=== PATIENT | female | born 1970 | race Caucasian/White ===

== ENCOUNTER 2020-04-29 18:19 | Emergency (ER) | payer MEDICAID, SELFPAY ==
[~2020-04-29] VITALS: Ht 167.6 cm; Wt 93.9 kg
[2020-04-29 18:21] VITALS: Ht 167.6 cm; Wt 93.9 kg
[2020-04-29] MEDS ORDERED: ZOF4 PO (20:39)
[2020-04-29] MEDS ORDERED: FLE10 PO (20:39)
[2020-04-29] MEDS ORDERED: TYL500 PO (20:39)
[2020-04-29 20:58] VITALS: BP 155/77
== END 2020-04-29 20:58 | disposition home or self-care (01) ==
LOC: ED 18:19
DX: B34.9 Viral infection, unspecified (principal); J45.909 Unspecified asthma, uncomplicated; I10 Essential (primary) hypertension; E78.00 Pure hypercholesterolemia, unspecified; Z20.822 Contact with and (suspected) exposure to COVID-19; Z90.49 Acquired absence of other specified parts of digestive tract; Z98.51 Tubal ligation status
CPT/HCPCS: U0003